=== PATIENT | male | born 2000 | race Hispanic/Latino ===

== ENCOUNTER 2023-03-02 15:08 | Emergency (ER) | payer SELFPAY ==
[~2023-03-02] VITALS: Ht 162.6 cm; Wt 66.7 kg
[2023-03-02 20:40] VITALS: BP 104/55
== END 2023-03-02 18:33 | disposition left against medical advice (07) | DRG 951 ==
LOC: ED 15:08 → LWOBS 17:28
DX: Z53.21 Procedure and treatment not carried out due to patient leaving prior to being seen by health care provider (principal)